=== PATIENT | male | born 1995 | race Caucasian/White ===

== ENCOUNTER 2016-12-31 21:15 | Emergency (ER) | payer OTHER ==
[~2016-12-31] VITALS: Ht 185.4 cm; Wt 78.0 kg
== END 2016-12-31 23:07 | disposition home or self-care (01) ==
LOC: ED 21:15
DX: R11.10 Vomiting, unspecified (principal); Z87.891 Personal history of nicotine dependence
CPT/HCPCS: 80053; 81001; 85025; 96374; 96375; 96376; 99283; J2405; J7040